=== PATIENT | male | born 1945 | race Caucasian/White ===

== ENCOUNTER 2023-02-05 09:40 | Outpatient (CLI) | payer MEDICARE, OTHER ==
[2023-02-05] MEDS ORDERED: GADOTERATE MEGLUMINE 7.5 MMOL/15 ML VIAL IV ONE (10:40)
== END 2023-02-05 23:59 | disposition home or self-care (01) ==
LOC: RAD 09:40
PROVIDERS: ATTEND Internal Medicine
DX: M47.812 Spondylosis without myelopathy or radiculopathy, cervical region (principal); M48.02 Spinal stenosis, cervical region; M43.12 Spondylolisthesis, cervical region; R53.1 Weakness; R20.2 Paresthesia of skin; R60.9 Edema, unspecified; Z98.890 Other specified postprocedural states
CPT/HCPCS: 72156; A9575

== ENCOUNTER 2023-02-24 14:35 | Inpatient (IN) | payer MEDICARE, OTHER ==
[~2023-02-24] VITALS: Ht 188 cm; Wt 77.0 kg
--- NOTE | 2023-02-24 15:34 | NUR ---
RN NOTIFIED RT TO COLLECT ABG.
--- NOTE | 2023-02-24 15:39 | NUR ---
EKG BEING DONE AT THIS TIME.
[2023-02-24] MEDS ORDERED: acetaminophen 325mg tablet PO ONE ×2 (15:40→16:00)
[2023-02-24] MEDS ORDERED: MEROPENEM 1GM/NS 100ML IVPB 100 ML IV ONE (15:40)
[2023-02-24] MEDS ORDERED: ringers solution, lacted 1,000 ML IV ONE (15:40)
[2023-02-24 15:44] LABS: ABG BASE EXCESS -0.3 mmol/L (-2.0-2.0); ABG HCO3 23.6 mmol/L (22.0-26.0); ABG OXYGEN SATURATION 68.9 % (94-97); ABG PCO2 (T) 36.1 mmHg (35.0-48.0); ABG PH (T) 7.434 (7.340-7.440); ABG PO2 (T) 34.6 mmHg (75.0-100.0); FCOHb 0.3 % (0.0-3.9); FHHb 30.9 % (0.0-5.0); FLOW 15 L/min; FMetHb 0.2 % (0.0-1.5); FO2Hb 68.6 % (94-97); MODE MASK - NRB; TOTAL HEMOGLOBIN 10.8 G/dl (14.0-17.9)
--- NOTE | 2023-02-24 15:47 | NUR ---
PER DR LOVE RN TO ORD COVID/FLU TEST/ABG/PT/PTT/CMP/PBNP/CBC/TROP SERIES/1GM TYLENOL PO/2400CC BOLUS LR/1GM MEROPENUM IV ONCE AND HAVE CULTURES COLLECTED P/T ADMIN/ CTA CHEST R/O PE.
--- NOTE | 2023-02-24 15:57 | NUR ---
RN CALLED PHARM AND REQ TYLENOL DOSE BE ADJUSTED OR LIQUID FOR FRACTION OF TAB AND REQ MEROPENUM.
[2023-02-24] MEDS ORDERED: iohexol 350MG/ML 100ml bottle IV ONE (16:01)
--- NOTE | 2023-02-24 16:08 | NUR ---
[facility] [phone]
--- NOTE | 2023-02-24 16:16 | NUR ---
RN NEEDS TO OBTAIN 2ND IV P/T STARTING MEROPENUM D/T NOT COMPATIBLE WITH LR.
[2023-02-24 16:21] LABS: BASOPHILS % (AUTO) 0 % (0-1); EOSINOPHILS % (AUTO) 0 % (0-6); LYMPHOCYTES # (AUTO) 0.7 X10'3 (1.1-4.8); LYMPHOCYTES % (AUTO) 4.1 % (21-51); MEAN PLATELET VOLUME 7.9 FL (7.4-10.4); MONOCYTES # (AUTO) 2.3 X10'3 (0-0.9); MONOCYTES % (AUTO) 14.4 % (2-12); NEUTROPHILS # (AUTO) 13.2 X10'3 (1.8-7.7); NEUTROPHILS % (AUTO) 81.5 % (42-75); PLATELET COUNT 515 X10'3 (140-440)
[2023-02-24 16:26] LABS: APTT 37 SECONDS (22-32); INR 1.5 INR; PROTHROMBIN TIME 15.7 SECONDS (9.0-12.0)
[2023-02-24 16:29] LABS: ALANINE AMINOTRANSFERASE 29 U/L (12-78); ALBUMIN 1.6 G/DL (3.4-5.0); ALBUMIN/GLOBULIN RATIO 0.4 (1.1-1.5); ALKALINE PHOSPHATASE 103 IU/L (46-116); ANION GAP 13 (8-16); ASPARTATE AMINO TRANSFERASE 41 U/L (10-37); BILIRUBIN,TOTAL 0.7 MG/DL (0.1-1.0); BLOOD UREA NITROGEN 40 MG/DL (7-18); BUN/CREATININE RATIO 27.2 (10.0-20.0); CALCIUM 8.3 MG/DL (8.5-10.1); CHLORIDE 101 MMOL/L (99-107); CREATININE 1.47 MG/DL (0.60-1.10); GLUCOSE 252 MG/DL (70-104); POTASSIUM 4.2 MMOL/L (3.5-5.1); SODIUM 138 MMOL/L (135-145); TOTAL CARBON DIOXIDE 23.6 MMOL/L (24-32); TOTAL PROTEIN 5.5 G/DL (6.4-8.2); eCRCL 44 ML/MIN; eGFR 46 ML/MIN
[2023-02-24 16:31] LABS: PRO BRAIN NATRIURETIC PEPTIDE 7716 PG/ML (0-450)
[2023-02-24 17:02] LABS: HEMATOCRIT 33.3 % (42.0-52.0); HEMOGLOBIN 10.5 g/dl (14.0-17.9); MEAN CORPUSCULAR HGB CONC 31.4 g/dL (33.0-36.5); MEAN CORPUSCULAR VOLUME 89.1 FL (78-98); RED BLOOD COUNT 3.74 X10'6 (4.70-6.10); RED CELL DISTRIBUTION WIDTH 18.3 % (11.5-14.5)
--- NOTE | 2023-02-24 17:03 | NUR ---
UNKNOWN MEDICATION PATCH TO LEFT ARM REMOVED WITH REMOVAL OF EKG STICKER. RN PUT PUT IN SHARPS CONTAINER/WITNESSED BY SIXTO MCCALL. RN WILL CONT TO MONITOR.
[2023-02-24 17:05] LABS: ACANTHOCYTES FEW; ANISOCYTOSIS 2+; BURR CELLS 1+; ELLIPTOCYTES FEW; HYPOCHROMASIA 1+; PLATELET ESTIMATE INCREASED; POLYCHROMASIA FEW; TEAR DROP CELLS FEW
[2023-02-24] MEDS ORDERED: magnesium 4gm in 100ml NS 100 ML IV PRN (17:40)
[2023-02-24] MEDS ORDERED: potassium Cl 20 mEq SR tablet PO PRN ×2 (17:40)
[2023-02-24] MEDS ORDERED: potassium Cl 40MEQ/1/2NS 520ml 520 ML IV PRN (17:40)
[2023-02-24] MEDS ORDERED: magnesium 2GM in 50ml NS 50 ML IV PRN (17:40)
[2023-02-24] MEDS ORDERED: ondansetron/PF 4mg/2ml inj IV PRN (17:40)
[2023-02-24] MEDS ORDERED: mag hydrox/Alum hydrox/simeth 30ml oral suspension PO PRN (17:40)
[2023-02-24] MEDS ORDERED: magnesium Cl slow-release 64mg tablet PO PRN (17:40)
[2023-02-24] MEDS ORDERED: acetaminophen 325mg tablet PO PRN (17:40)
[2023-02-24] MEDS: normal saline 1000ml 1,000 ML IV SCH (17:40)
[2023-02-24] MEDS ORDERED: magnesium hydroxide 30ml (MOM) UD suspension PO PRN (17:40)
[2023-02-24] MEDS ORDERED: normal saline 1000ml 1,000 ML IV ONE ×2 (17:50→23:00)
[2023-02-24] MEDS ORDERED: azithromycin/NS 500mg/250ml 250 ML IV ONE (17:50)
[2023-02-24] MEDS: MESSAGE TO NURSING PO NR (17:51)
--- NOTE | 2023-02-24 18:08 | NUR ---
RT PAGED TO APPLIED HFNC
[2023-02-24] MEDS: normal saline 1000ml 1,000 ML IV ONE (18:30)
[2023-02-24 18:37] LABS: HEMOGLOBIN A1C 6.6 % (4.5-6.2)
[2023-02-24 18:52] VITALS: PULSE 126; RESP 25; O2SAT 86
[2023-02-24] MEDS ORDERED: metoprolol tartrate 1mg/ml inj IV ONE ×2 (18:55→19:00)
--- NOTE | 2023-02-24 18:57 | NUR ---
PER DR SALCEDO ORD 5MG METOPROLOL IV ONCE AND ADMIN.
[2023-02-24] MEDS ORDERED: VANCOmycin 2,000MG in NS 500ml IV soln IV ONE (19:00)
--- NOTE | 2023-02-24 19:13 | NUR ---
PER PT RN MAY SHARE ALL HEALTH INFO WITH HIS SON MARY. RN UPDATED PT SON MARY BY PHONE AND HE WILL CALL THE PT SISTER WHO HAS ALSO CALLED TO CK ON THE PATIENT AND UPDATE HER.
[2023-02-24 19:15] VITALS: PULSE 130; RESP 17; O2SAT 86
--- NOTE | 2023-02-24 19:28 | NUR ---
RN DID NOT ADMIN TYLENOL D/T RT AT BEDSIDE PUTTING PT ON HFNC. METOPROLOL HELD D/T PT HAS SYS 94. RN NOTIFIED GREG OSPINA RECEIVING RN AND SHE WILL CONTACT MD TO INQUIRE ABOUT MED FOR PT HR.
[2023-02-24] MEDS: K and/or MAG REPLACEMENT MC SCH (20:00)
[2023-02-24 23:30] VITALS: PULSE 112; RESP 18; O2SAT 86
[2023-02-24] MEDS: ipratropium/albuterol 3ml nebule NEB SCH (23:30)
[2023-02-24 23:34] VITALS: PULSE 105; RESP 17; O2SAT 87
[2023-02-24 23:39] VITALS: PULSE 113; RESP 17
[2023-02-25] VITALS (8 sets, daily range): BP systolic 36–94; BP diastolic 46–52; PULSE 100–143; RESP 11–28; TEMP 100.3; O2SAT 70–97
[2023-02-25] MEDS: normal saline 1000ml 1,000 ML IV SCH ×2 (01:04→13:40)
[2023-02-25 01:21] LABS: MEAN CORPUSCULAR VOLUME 86.7 FL (78-98); MONOCYTES # (AUTO) 1.4 X10'3 (0-0.9)
[2023-02-25 01:22] LABS: BASOPHILS % (AUTO) 0.1 % (0-1); EOSINOPHILS % (AUTO) 0.1 % (0-6); HEMATOCRIT 27.2 % (42.0-52.0); HEMOGLOBIN 8.5 g/dl (14.0-17.9); LYMPHOCYTES # (AUTO) 0.7 X10'3 (1.1-4.8); LYMPHOCYTES % (AUTO) 4.7 % (21-51); MEAN CORPUSCULAR HEMOGLOBIN 27.1 PG (27.0-31.0); MEAN CORPUSCULAR HGB CONC 31.3 g/dL (33.0-36.5); MEAN PLATELET VOLUME 8.1 FL (7.4-10.4); MONOCYTES % (AUTO) 9.6 % (2-12); NEUTROPHILS # (AUTO) 12.3 X10'3 (1.8-7.7); NEUTROPHILS % (AUTO) 85.5 % (42-75); PLATELET COUNT 445 X10'3 (140-440); RED BLOOD COUNT 3.14 X10'6 (4.70-6.10); RED CELL DISTRIBUTION WIDTH 18.6 % (11.5-14.5); WHITE BLOOD COUNT 14.4 X10'3 (4.5-11.0)
[2023-02-25 01:42] LABS: ABG BASE EXCESS -1.4 mmol/L (-2.0-2.0); ABG HCO3 22.5 mmol/L (22.0-26.0); ABG PCO2 (T) 35.8 mmHg (35.0-48.0); ABG PH (T) 7.419 (7.340-7.440); ABG PO2 (T) 47.7 mmHg (75.0-100.0); FCOHb 0.3 % (0.0-3.9); FHHb 18.9 % (0.0-5.0); FMetHb 0.2 % (0.0-1.5); FO2Hb 80.6 % (94-97); MODE high flow and nrb; TOTAL HEMOGLOBIN 9.7 G/dl (14.0-17.9)
[2023-02-25 01:44] LABS: ALANINE AMINOTRANSFERASE 26 U/L (12-78); ALBUMIN 1.3 G/DL (3.4-5.0); ALBUMIN/GLOBULIN RATIO 0.4 (1.1-1.5); ALKALINE PHOSPHATASE 86 IU/L (46-116); ANION GAP 12 (8-16); ASPARTATE AMINO TRANSFERASE 39 U/L (10-37); BILIRUBIN,TOTAL 0.6 MG/DL (0.1-1.0); BLOOD UREA NITROGEN 34 MG/DL (7-18); BUN/CREATININE RATIO 30.1 (10.0-20.0); CALCIUM 7.6 MG/DL (8.5-10.1); CHLORIDE 105 MMOL/L (99-107); CREATININE 1.13 MG/DL (0.60-1.10); GLUCOSE 240 MG/DL (70-104); HDL CHOLESTEROL 17 MG/DL (35-60); LDL CHOLESTEROL 6 MG/DL (50-100); MAGNESIUM 1.7 MG/DL (1.5-2.4); PHOSPHORUS 2.4 MG/DL (2.3-4.5); POTASSIUM 3.9 MMOL/L (3.5-5.1); SODIUM 140 MMOL/L (135-145); TOTAL PROTEIN 4.6 G/DL (6.4-8.2); TRIGLYCERIDES 62 MG/DL (20-135); eCRCL 58 ML/MIN; eGFR 63 ML/MIN
[2023-02-25 01:59] LABS: CHOLESTEROL < 50 MG/DL (0-200)
[2023-02-25 02:57] LABS: PLATELET ESTIMATE INCREASED; TOTAL CELLS COUNTED 100
[2023-02-25 02:58] LABS: ANISOCYTOSIS 2+
[2023-02-25] MEDS ORDERED: PHENYLephrine 10mg/ml inj. 50 MG in normal saline 250ml IV soln 245 ML IV PRN ×2 (04:10→04:25)
[2023-02-25] MEDS ORDERED: NORepinephrine 8mg/ 250ml NS 250 ML IV SCH (04:15)
--- NOTE | 2023-02-25 04:32 | NUR ---
Pt unable to go to PCU R/T acuity.
--- NOTE | 2023-02-25 04:35 | NUR ---
CONTACTED DR RODGERS FOR CENTRAL LINE PLACEMENT HE ADVISED TO HAVE EVERYTHING AVAILABLE AND SET UP FOR THE PROCEDURE.
--- NOTE | 2023-02-25 05:36 | NUR ---
Pt brought to floor with MD at bedside, no report called. Initially patient was coming to ICU for CVC placement so he could get Levophed. Upon arriving the MD did not think the patient would have a good outcome and we were just prolonging his suffering. He made a phone call to the DTR who indicated she agreed and would prefer to just make him comfortable. No CVC placed. MD stayed at bedside untill DTR arrived at 0538. She is sitting with him now. Plan is to go comfort care as far as we can tell for now. Pt was started on Neosynephrine drip in the interim via PIV as he was hypotensive on arrival and we were waiting for the DTR to arrive.
[2023-02-25] MEDS ORDERED: morphine 4 MG/ML inj SYRINge IV ONE (05:44)
--- NOTE | 2023-02-25 05:47 | NUR ---
Morphine IV ordered for pain. Pt has allergy listed, per the DTR it just make him a little confused. OKd by MD to give morphine.
[2023-02-25] MEDS ORDERED: morphine 4 MG/ML inj SYRINge IV PRN ×3 (05:50→18:10)
--- NOTE | 2023-02-25 06:12 | NUR ---
Dr. Ngo had a meeting with DTR Chioma and myself. He offered her the opportunity to treat him although it would be aggresive and he is in pain. She agreed to comfort measures. Neosynephrine turned off, Bipap removed per pt and the DTR. he states he's comfortable after 4mg of morphine but will reassess frequently.
[2023-02-25] MEDS ORDERED: morphine 10mg/ml inj. IV PRN ×2 (06:15→18:10)
[2023-02-25] MEDS: piperacillin/tazo 3.375gm/50ml 50 ML IV SCH ×4 (06:51→14:19)
[2023-02-25] MEDS: K and/or MAG REPLACEMENT MC SCH (06:52)
[2023-02-25] MEDS: heparin, porcine 5000 units/ml vial SQ SCH ×2 (06:52)
[2023-02-25] MEDS: MESSAGE TO NURSING PO NR (06:53)
[2023-02-25] MEDS: ipratropium/albuterol 3ml nebule NEB SCH ×2 (08:00→16:00)
[2023-02-25] MEDS ORDERED: vancomycin/NS 1 GM ADD-VANTAGE 250 ML IV SCH (08:00)
--- NOTE | 2023-02-25 09:37 | NUR ---
Noted pt DNR w/ comfort care per EMR. LBM 02/24 per EMR. Will continue to follow per comfort measures. Rec: 1. bowel care per rx Addendum: 02/25/23 at [address] Amended: Links added.
[2023-02-25] MEDS: morphine 2 MG/ML inj. syringe IV PRN ×5 (09:47→21:10)
--- NOTE | 2023-02-25 10:34 | NUR ---
Positioned for comfort.
[2023-02-25] MEDS ORDERED: INSU100I31 SQ (12:49)
[2023-02-25] MEDS ORDERED: SODI473S26 MC (12:49)
[2023-02-25] MEDS ORDERED: MULT-1085 PO (12:49)
[2023-02-25] MEDS ORDERED: NYST15CR36 TOP (12:49)
[2023-02-25] MEDS ORDERED: NICO-630 TOP (12:49)
[2023-02-25] MEDS ORDERED: ATOR40TA PO (12:49)
[2023-02-25] MEDS ORDERED: ENOX40SY7 SUBCUT (12:49)
[2023-02-25] MEDS ORDERED: GABA-530 PO (12:49)
[2023-02-25] MEDS ORDERED: ASPI-611 PO (12:49)
[2023-02-25] MEDS ORDERED: MIDO5TAB4 PO (12:49)
[2023-02-25] MEDS ORDERED: SENN8.6T19 PO (12:49)
[2023-02-25] MEDS ORDERED: FLO0.4C PO (12:49)
[2023-02-25] MEDS ORDERED: OMEG-133 PO (12:49)
[2023-02-25] MEDS ORDERED: morphine 2 MG/ML inj. syringe IV PRN (18:10)
[2023-02-25] MEDS ORDERED: vancomycin/NS 1 GM ADD-VANTAGE 250 ML X 1 DOSE IV SCH (19:00)
--- NOTE | 2023-02-25 23:33 | NUR ---
RN IS TO DOCUMENT YES TO ALL APPLICABLE AREAS Pronouncement of : 2252 1. Time Physician Notified: [id number] 2. Date of : 02/25/23 3. Time of : 2252 4. DNR/Withdraw life support documented: Yes DNR with Comfort Care 5. Monitor strip has been placed on chart: Yes, Asystole 6. Assessment process is of one-minute duration and includes following criteria: a) Patient is unresponsive to all stimuli: No response to any stimuli b) Pupils fixed and non-reactive: Pupils fixed and Dilated c) Auscultation of precordium reveals absence of heart tones: no heart tones x1min d) Auscultation of lungs reveals absence of breath sounds: no lung sounds x1min e) Absence of blood pressure / all vital signs: unable to get BP with automatic or manual cuff f) QRS complexes are not present on monitor / EKG strip: no QRS complexs, asystole g) Pacer spikes without capture: no PPM 4. Comments: Pt peacefully with daughter, Chioma, at bedside.
[2023-02-26] MEDS ORDERED: VANCOMYCIN LEVEL IV ONE (19:30)
== END 2023-02-25 22:53 | DRG 871 ==
LOC: ER 14:35 → ED HOLD 17:47 → EDBEDREQDT 02-25 03:23 → EDBEDREQSVC 02-25 03:23 → EDBEDREQTM 02-25 03:23 → CICU 2S 02-25 05:34
PROVIDERS: ADMIT Student in an Organized Health Care Education/Training Program; ATTEND Student in an Organized Health Care Education/Training Program
PROC: B32T1ZZ Computerized Tomography (CT Scan) of Left Pulmonary Artery using Low Osmolar Contrast (ICD-10-PCS; principal; 2023-02-24)
PROC: B3201ZZ Computerized Tomography (CT Scan) of Thoracic Aorta using Low Osmolar Contrast (ICD-10-PCS; 2023-02-24)
PROC: B32S1ZZ Computerized Tomography (CT Scan) of Right Pulmonary Artery using Low Osmolar Contrast (ICD-10-PCS; 2023-02-24)
PROC: 5A0935A Assistance with Respiratory Ventilation, Less than 24 Consecutive Hours, High Flow/Velocity Cannula (ICD-10-PCS; 2023-02-24)
PROC: 5A09357 Assistance with Respiratory Ventilation, Less than 24 Consecutive Hours, Continuous Positive Airway Pressure (ICD-10-PCS; 2023-02-25)
DX: A41.9 Sepsis, unspecified organism (principal); J18.9 Pneumonia, unspecified organism; J96.01 Acute respiratory failure with hypoxia; R65.21 Severe sepsis with septic shock; N17.0 Acute kidney failure with tubular necrosis; T17.890A Other foreign object in other parts of respiratory tract causing asphyxiation, initial encounter; E46 Unspecified protein-calorie malnutrition; E78.00 Pure hypercholesterolemia, unspecified; I10 Essential (primary) hypertension; I25.10 Atherosclerotic heart disease of native coronary artery without angina pectoris; N28.1 Cyst of kidney, acquired; N40.0 Benign prostatic hyperplasia without lower urinary tract symptoms; Z66 Do not resuscitate; Z20.822 Contact with and (suspected) exposure to COVID-19; K76.0 Fatty (change of) liver, not elsewhere classified; L89.159 Pressure ulcer of sacral region, unspecified stage; E11.51 Type 2 diabetes mellitus with diabetic peripheral angiopathy without gangrene; I48.0 Paroxysmal atrial fibrillation; Z79.01 Long term (current) use of anticoagulants; Z89.511 Acquired absence of right leg below knee; Z88.1 Allergy status to other antibiotic agents; Z88.5 Allergy status to narcotic agent; Z88.8 Allergy status to other drugs, medicaments and biological substances; Z91.018 Allergy to other foods; Z79.899 Other long term (current) drug therapy; Z87.891 Personal history of nicotine dependence; Z95.1 Presence of aortocoronary bypass graft; Z68.21 Body mass index [BMI] 21.0-21.9, adult
CPT/HCPCS: 36415; 36600; 71045; 71275; 80053; 80061; 82803; 83036; 83605; 83735; 83880; 84100; 84145; 84484; 85007; 85008; 85018; 85025; 85610; 85730; 87040; 87502; 87503; 87811; 94640; 94660; 94664; 94668; 94760; 99285; A6213; A6258; A6449; C1751; G0378; J0456; J2185; J2270; J2370; J2543; J3370; J3490; J7030; J7040; J7050; J7120; Q9967